=== PATIENT | female | born 1980 | race Caucasian/White ===

== ENCOUNTER 2022-11-26 07:57 | Outpatient (CLI) | payer OTHER | END 2022-11-26 07:58 | disposition home or self-care (01) | LOC: CSHULT 07:57 | PROVIDERS: ATTEND Physician Assistant | DX: R74.8 Abnormal levels of other serum enzymes (principal); K76.0 Fatty (change of) liver, not elsewhere classified | CPT/HCPCS: 76705 ==

== ENCOUNTER 2022-12-03 15:30 | Outpatient (CLI) | payer OTHER | END 2022-12-03 15:31 | disposition home or self-care (01) | LOC: CSHMAMMO 15:30 | PROVIDERS: ATTEND Physician Assistant | DX: Z12.31 Encounter for screening mammogram for malignant neoplasm of breast (principal); N63.20 Unspecified lump in the left breast, unspecified quadrant | CPT/HCPCS: 77063; 77067 ==

== ENCOUNTER 2022-12-14 08:51 | Outpatient (CLI) | payer OTHER | END 2022-12-14 08:52 | disposition home or self-care (01) | LOC: CSHMAMMO 08:51 | PROVIDERS: ATTEND Physician Assistant | DX: N63.20 Unspecified lump in the left breast, unspecified quadrant (principal) | CPT/HCPCS: G0279 ==

== ENCOUNTER 2023-07-19 08:53 | Emergency (ER) | payer OTHER ==
[2023-07-19] MEDS ORDERED: HYDROcodone/Acetaminophen 5/325 mg Tablet ONE (09:14)
== END 2023-07-19 10:25 | disposition home or self-care (01) ==
LOC: CSHERS 08:53
DX: S83.412A Sprain of medial collateral ligament of left knee, initial encounter (principal); I10 Essential (primary) hypertension; F17.210 Nicotine dependence, cigarettes, uncomplicated; X50.1XXA Overexertion from prolonged static or awkward postures, initial encounter